=== PATIENT | female | born 1970 | race Caucasian/White ===

== ENCOUNTER → 2017-04-17 | Outpatient (CLI) | payer OTHER ==
--- NOTE | 2017-04-17 18:53 | CT ---
EXAMINATION TYPE: CT chest w con DATE OF EXAM: 04/17/2017 COMPARISON: NONE HISTORY: Lung nodule follow-up. CT DLP: 146.40 mGycm Automated exposure control for dose reduction was used. CONTRAST: CT scan of the chest is performed with IV Contrast, patient injected with 100 mL of Omnipaque 300. FINDINGS: There is a 1 cm nodular density at the right lung apex. There is mild emphysema in the right upper lo be. Heart size is normal. There is no pericardial effusion. There is no pleural effusion. The other l judy byers are clear. There is no mediastinal adenopathy. There are no hilar masses. IMPRESSION: Small noncalcified nodule at the right lung apex. I have no old exam to compare.
== END | disposition home or self-care (01) ==
LOC: RADCTMAIN 17:07
PROVIDERS: ATTEND Family Medicine
DX: R91.1 Solitary pulmonary nodule (principal)
CPT/HCPCS: 71260; Q9967

== ENCOUNTER 2017-05-16 07:34 | Emergency (ER) | payer OTHER ==
[2017-05-16 07:59] VITALS: TEMP 98.8
[2017-05-16] MEDS ORDERED: SODIUM CHLORIDE 0.9% 1,000 ML IV STA (08:21)
--- NOTE | 2017-05-16 08:24 | ED ---
General Adult HPI - General Chief complaint: Fall Stated complaint: Knee Injury Time Seen by Provider: 05/16/17 08:07 Source: patient, RN notes reviewed Mode of arrival: wheelchair Limitations: physical limitation - History of Present Illness Initial comments: 47-year-old female presents to the emergency department with a chief complaint of syncopal episode. Patient states she had 4 syncopal episodes. Patient states these happened last night. Patient states that she ate later than normal. She has had smoked a cigarette she started to get very lightheaded like she has not passed out she remembers hitting her knee and then she passed out. Patient states that she does not remember the rest the states that she passed out about 3 or 4 times last night one time she even. Her parents. They state that she never hit her head. She complains of left elbow and left knee pain. Patient does admit to a history of an DE 8 years ago roughly and states that she is still smoking and she does not take any of her heart medication. Patient states that she was concerned due to her symptoms so she thought that she should be evaluated. Patient states there is no chest pain with this episode however she did feel short of breath. She denies any nausea or vomiting. Patient denies any recent fever, chills, chest pain, back pain, abdominal pain, nausea vomiting, numbness or tingling, dysuria or hematuria, constipation or diarrhea, headaches or visual changes, or any other current symptoms. - Related Data Home Medications Medication Instructions Recorded Confirmed DULoxetine HCL [Cymbalta] 60 mg PO HS 05/16/17 05/16/17 HYDROcodone/APAP 7.5-325MG [[place] 1 tab PO DAILY 05/16/17 05/16/17 7.5-325] Previous Rx's Medication Instructions Recorded Ibuprofen [Motrin] 600 mg PO Q6HR PRN #20 tab 05/16/17 Allergies Allergy/AdvReac Type Severity Reaction Status Date / Time codeine Allergy Unknown Verified 05/16/17 08:08 Penicillins Allergy Rash/Hives Verified 05/16/17 08:08 Review of Systems ROS Statement: Those systems with pertinent positive or pertinent negative responses have been documented in the HPI. ROS Other: All systems not noted in ROS Statement are negative. Past Medical History Past Medical History: Myocardial Infarction (DE) Additional Past Medical History / Comment(s): RIGHT LUNG SPOT History of Any Multi-Drug Resistant Organisms: None Reported Additional Past Surgical History / Comment(s): CERVICAL SURGERY Past Psychological History: No Psychological Hx Reported Smoking Status: Current every day smoker Past Alcohol Use History: Occasional Past Drug Use History: None Reported General Exam - General Exam Comments Initial Comments: General: The patient is awake and alert, in no distress, and does not appear acutely ill. Eye: Pupils are equal, round and reactive to light, extra-ocular movements are intact; there is normal conjunctiva bilaterally. No signs of icterus. Ears, nose, mouth and throat: There are moist mucous membranes and no oral lesions. Neck: The neck is supple, there is no tenderness. Cardiovascular: There is a regular rate and rhythm. No murmur, rub or gallop is appreciated. Respiratory: Lungs are clear to auscultation, respirations are non-labored, breath sounds are equal. No wheezes, stridor, rales, or rhonchi. Gastrointestinal: Soft, non-distended, non-tender abdomen without masses or organomegaly noted. There is no rebound or guarding present. No CVA tenderness. Bowel sounds are unremarkable. Back: There is no tenderness to palpation in the midline. There is no obvious deformity. No rashes noted. Musculoskeletal: Normal ROM, tenderness over the left knee and left elbow to palpation, There is no pedal edema. There is no calf tenderness or swelling. Sensation intact. Pulses equal bilaterally 2+. Neurological: CN II-XII intact, There are no obvious motor or sensory deficits. Coordination appears grossly intact. Speech is normal. Skin: Skin is warm and dry and no rashes or lesions are noted. Psychiatric: Cooperative, appropriate mood & affect, normal judgment. Limitations: physical limitation Course Vital Signs 05/16/17 05/16/17 05/16/17 07:50 09:10 09:54 Temperature 98.8 F Pulse Rate 98 80 Respiratory 18 18 Rate Blood Pressure 129/58 111/55 Blood Pressure 120/67 [Right Arm Sitting] Blood Pressure 141/67 [Right Arm Standing] Blood Pressure 117/64 [Right Arm Supine] O2 Sat by Pulse 100 97 Oximetry EKG Findings - EKG Comments: EKG Findings:: normal sinus rhythm with premature ventricular complexes 86 bpm, normal axis, no atopy, no S-T depressions or elevations, Medical Decision Making - Medical Decision Making 47-year-old female presents for syncopal episode.at this time patient's imaging and lab work is been reviewed. This time we did discuss that due to her history with syncopal episodes he like to admit her for continued syncope workup. At this time the patient refuses to stay. She states that she would like to go home. This and we will respect the patient's wishes. We discussed close follow up with her doctor if she has any dizziness today at all she is to come back immediately. This time she has no dizziness with those are negative. She is continuing complaint of left knee pain x-rays negative. We did place her in a knee immobilizer discussed follow-up with orthopedics. We did discuss return parameters all her questions. She stated she understood and she is. This plan. She will be discharged. - Lab Data Result diagrams: 05/16/17 08:34 05/16/17 08:34 Lab Results 05/16/17 05/16/17 05/16/17 Range/Units 08:34 08:34 08:34 WBC 8.1 (3.8-10.6) k/uL RBC 4.56 (3.80-5.40) m/uL Hgb 14.8 (11.4-16.0) gm/dL Hct 45.6 (34.0-46.0) % MCV 100.1 H (80.0-100.0) fL MCH 32.5 (25.0-35.0) pg MCHC 32.4 (31.0-37.0) g/dL RDW 12.4 (11.5-15.5) % Plt Count 261 (150-450) k/uL Neutrophils % 67 % Lymphocytes % 24 % Monocytes % 6 % Eosinophils % 2 % Basophils % 0 % Neutrophils # 5.4 (1.3-7.7) k/uL Lymphocytes # 1.9 (1.0-4.8) k/uL Monocytes # 0.5 (0-1.0) k/uL Eosinophils # 0.1 (0-0.7) k/uL Basophils # 0.0 (0-0.2) k/uL PT (9.0-12.0) sec INR (<1.2) APTT (22.0-30.0) sec Sodium 141 (137-145) mmol/L Potassium 4.3 (3.5-5.1) mmol/L Chloride 107 (98-107) mmol/L Carbon Dioxide 22 (22-30) mmol/L Anion Gap 12 mmol/L BUN 12 (7-17) mg/dL Creatinine 0.98 (0.52-1.04) mg/dL Est GFR (MDRD) Af Amer >60 (>60 ml/min/1.73 sqM) Est GFR (MDRD) Non-Af >60 (>60 ml/min/1.73 sqM) Glucose 78 (74-99) mg/dL Plasma Lactic Acid Favian (0.7-2.0) mmol/L Calcium 9.0 (8.4-10.2) mg/dL Magnesium 1.9 (1.6-2.3) mg/dL Total Bilirubin 0.4 (0.2-1.3) mg/dL AST 16 (14-36) U/L ALT 25 (9-52) U/L Alkaline Phosphatase 53 (38-126) U/L Total Creatine Kinase 30 (30-135) U/L CK-MB (CK-2) 0.9 (0.0-2.4) ng/mL CK-MB (CK-2) Rel Index 3.0 Troponin I <0.012 (0.000-0.034) ng/mL Total Protein 7.2 (6.3-8.2) g/dL Albumin 4.3 (3.5-5.0) g/dL Amylase 66 (30-110) U/L Lipase 113 (23-300) U/L Urine Color Urine Appearance (Clear) Urine pH (5.0-8.0) Ur Specific [place] (1.001-1.035) Urine Protein (Negative) Urine Glucose (UA) (Negative) Urine Ketones (Negative) Urine Blood (Negative) Urine Nitrite (Negative) Urine Bilirubin (Negative) Urine Urobilinogen (<2.0) mg/dL Ur Leukocyte Esterase (Negative) Urine HCG, Qual (Not Detectd) 05/16/17 05/16/17 05/16/17 Range/Units 08:34 08:34 08:34 WBC (3.8-10.6) k/uL RBC (3.80-5.40) m/uL Hgb (11.4-16.0) gm/dL Hct (34.0-46.0) % MCV (80.0-100.0) fL MCH (25.0-35.0) pg MCHC (31.0-37.0) g/dL RDW (11.5-15.5) % Plt Count (150-450) k/uL Neutrophils % % Lymphocytes % % Monocytes % % Eosinophils % % Basophils % % Neutrophils # (1.3-7.7) k/uL Lymphocytes # (1.0-4.8) k/uL Monocytes # (0-1.0) k/uL Eosinophils # (0-0.7) k/uL Basophils # (0-0.2) k/uL PT 11.4 (9.0-12.0) sec INR 1.1 (<1.2) APTT 25.0 (22.0-30.0) sec Sodium (137-145) mmol/L Potassium (3.5-5.1) mmol/L Chloride (98-107) mmol/L Carbon Dioxide (22-30) mmol/L Anion Gap mmol/L BUN (7-17) mg/dL Creatinine (0.52-1.04) mg/dL Est GFR (MDRD) Af Amer (>60 ml/min/1.73 sqM) Est GFR (MDRD) Non-Af (>60 ml/min/1.73 sqM) Glucose (74-99) mg/dL Plasma Lactic Acid Favian 1.0 (0.7-2.0) mmol/L Calcium (8.4-10.2) mg/dL Magnesium (1.6-2.3) mg/dL Total Bilirubin (0.2-1.3) mg/dL AST (14-36) U/L ALT (9-52) U/L Alkaline Phosphatase (38-126) U/L Total Creatine Kinase (30-135) U/L CK-MB (CK-2) (0.0-2.4) ng/mL CK-MB (CK-2) Rel Index Troponin I (0.000-0.034) ng/mL Total Protein (6.3-8.2) g/dL Albumin (3.5-5.0) g/dL Amylase (30-110) U/L Lipase (23-300) U/L Urine Color Yellow Urine Appearance Clear (Clear) Urine pH 5.5 (5.0-8.0) Ur Specific [place] 1.016 (1.001-1.035) Urine Protein Negative (Negative) Urine Glucose (UA) Negative (Negative) Urine Ketones Trace H (Negative) Urine Blood Negative (Negative) Urine Nitrite Negative (Negative) Urine Bilirubin Negative (Negative) Urine Urobilinogen <2.0 (<2.0) mg/dL Ur Leukocyte Esterase Negative (Negative) Urine HCG, Qual (Not Detectd) 05/16/17 Range/Units 08:34 WBC (3.8-10.6) k/uL RBC (3.80-5.40) m/uL Hgb (11.4-16.0) gm/dL Hct (34.0-46.0) % MCV (80.0-100.0) fL MCH (25.0-35.0) pg MCHC (31.0-37.0) g/dL RDW (11.5-15.5) % Plt Count (150-450) k/uL Neutrophils % % Lymphocytes % % Monocytes % % Eosinophils % % Basophils % % Neutrophils # (1.3-7.7) k/uL Lymphocytes # (1.0-4.8) k/uL Monocytes # (0-1.0) k/uL Eosinophils # (0-0.7) k/uL Basophils # (0-0.2) k/uL PT (9.0-12.0) sec INR (<1.2) APTT (22.0-30.0) sec Sodium (137-145) mmol/L Potassium (3.5-5.1) mmol/L Chloride (98-107) mmol/L Carbon Dioxide (22-30) mmol/L Anion Gap mmol/L BUN (7-17) mg/dL Creatinine (0.52-1.04) mg/dL Est GFR (MDRD) Af Amer (>60 ml/min/1.73 sqM) Est GFR (MDRD) Non-Af (>60 ml/min/1.73 sqM) Glucose (74-99) mg/dL Plasma Lactic Acid Favian (0.7-2.0) mmol/L Calcium (8.4-10.2) mg/dL Magnesium (1.6-2.3) mg/dL Total Bilirubin (0.2-1.3) mg/dL AST (14-36) U/L ALT (9-52) U/L Alkaline Phosphatase (38-126) U/L Total Creatine Kinase (30-135) U/L CK-MB (CK-2) (0.0-2.4) ng/mL CK-MB (CK-2) Rel Index Troponin I (0.000-0.034) ng/mL Total Protein (6.3-8.2) g/dL Albumin (3.5-5.0) g/dL Amylase (30-110) U/L Lipase (23-300) U/L Urine Color Urine Appearance (Clear) Urine pH (5.0-8.0) Ur Specific [place] (1.001-1.035) Urine Protein (Negative) Urine Glucose (UA) (Negative) Urine Ketones (Negative) Urine Blood (Negative) Urine Nitrite (Negative) Urine Bilirubin (Negative) Urine Urobilinogen (<2.0) mg/dL Ur Leukocyte Esterase (Negative) Urine HCG, Qual Not Detected (Not Detectd) - Radiology Data Radiology results: report reviewed, image reviewed Disposition Clinical Impression: Syncope, Syncope, Left elbow contusion, Contusion of left knee Disposition: HOME SELF-CARE Condition: Stable Instructions: Syncope (ED) Additional Instructions: Please use medication as discussed. Please follow up with family doctor if symptoms have not improved over the next two days. Please return to the emergency room if your symptoms increase or worsen or for any other concerns. Prescriptions: Ibuprofen [Motrin] 600 mg PO Q6HR PRN #20 tab PRN Reason: Pain Referrals: Chioma Menon MD [Primary Care Provider] - 1-2 days William Valdez DO [Doctor of Osteopathic Medicine] - 1-2 days Time of Disposition: 10:54
[2017-05-16 08:57] LABS: ALT 25 U/L (9-52); AST 16 U/L (14-36); Alkaline Phosphatase 53 U/L (38-126); Amylase 66 U/L (30-110); Anion Gap 12 mmol/L; Appearance,Urine Clear (Clear); Basophils % (A) 0 %; Bilirubin,Urine Negative (Negative); Blood Urea Nitrogen 12 mg/dL (7-17); CH 32.7; CHCM 32.8; Carbon Dioxide 22 mmol/L (22-30); Chloride 107 mmol/L (98-107); Eosinophils # (A) 0.1 k/uL (0-0.7); Eosinophils % (A) 2 %; Glucose 78 mg/dL (74-99); Glucose,Urine (UA) Negative (Negative); HCT 45.6 % (34.0-46.0); HDW 2.07; HGB 14.8 gm/dL (11.4-16.0); Ketones,Urine Trace (Negative); Leukocyte Esterase,Urine Negative (Negative); Luc # (Auto) 0.14; Luc % (Auto) 2; Lymphocytes # (A) 1.9 k/uL (1.0-4.8); Lymphocytes % (A) 24 %; MCH 32.5 pg (25.0-35.0); MCHC 32.4 g/dL (31.0-37.0); MCV 100.1 fL (80.0-100.0); Magnesium 1.9 mg/dL (1.6-2.3); Mean Platelet Volume 6.8; Monocytes # (A) 0.5 k/uL (0-1.0); Monocytes % (A) 6 %; Neutrophils # (A) 5.4 k/uL (1.3-7.7); Neutrophils % (A) 67 %; Nitrite,Urine Negative (Negative); Non-African American GFR(MDRD) >60 (>60 ml/min/1.73 sqM); PH, Urine 5.5 (5.0-8.0); Potassium 4.3 mmol/L (3.5-5.1); Protein,Urine Negative (Negative); RBC 4.56 m/uL (3.80-5.40); RDW 12.4 % (11.5-15.5); Sodium 141 mmol/L (137-145); Specific Gravity,Urine 1.016 (1.001-1.035); Total Bilirubin 0.4 mg/dL (0.2-1.3); Total Protein 7.2 g/dL (6.3-8.2); UA Billing (MACRO vs. MICRO) CHEM; Urobilinogen,Urine <2.0 mg/dL (<2.0); WBC 8.1 k/uL (3.8-10.6)
[2017-05-16 08:58] LABS: INR 1.1 (<1.2); Prothrombin Time 11.4 sec (9.0-12.0)
[2017-05-16 09:09] LABS: Creatine Kinase 30 U/L (30-135)
[2017-05-16 09:21] LABS: Creatine Kinase MB 0.9 ng/mL (0.0-2.4); Troponin I <0.012 ng/mL (0.000-0.034)
--- NOTE | 2017-05-16 09:52 | XR ---
EXAMINATION TYPE: XR elbow complete LT DATE OF EXAM: 05/16/2017 CLINICAL HISTORY: Left elbow pain after fall injury last night TECHNIQUE: Frontal, lateral and oblique images of the left elbow are obtained. COMPARISON: None FINDINGS: There is no acute fracture/dislocation evident in the left elbow. No abnormal fat pad sig ns are seen. The overlying soft tissue appears unremarkable. IMPRESSION: There is no acute fracture or dislocation in the left elbow.
--- NOTE | 2017-05-16 09:58 | XR ---
EXAMINATION TYPE: XR knee complete LT DATE OF EXAM: 05/16/2017 CLINICAL HISTORY: pain TECHNIQUE: Three views of the left knee are obtained. COMPARISON: None. FINDINGS: There is no acute fracture/dislocation. The tri-compartment joint spaces appear within no rmal limits. The overlying soft tissue appears unremarkable. IMPRESSION: There is no acute fracture or dislocation ICD 10 NO FRACTURE, INITIAL EVALUATION
--- NOTE | 2017-05-16 09:59 | XR ---
EXAMINATION TYPE: XR chest 2V DATE OF EXAM: 05/16/2017 CLINICAL HISTORY: Chest pain TECHNIQUE: Frontal and lateral views of the chest are obtained. COMPARISON: None FINDINGS: There is no focal air space opacity, pleural effusion, or pneumothorax seen. The cardiac silhouette size is within normal limits. The osseous structures are intact. IMPRESSION: No acute cardiopulmonary process.
--- NOTE | 2017-05-16 10:17 | CT ---
EXAMINATION TYPE: CT brain wo con DATE OF EXAM: 05/16/2017 COMPARISON: NONE HISTORY: syncope CT DLP: 1054.[address] of the brain was performed. The ventricles, basal cisterns and sulci overlying the cerebral convexities demonstrate a normal appe arance. There is no evidence for intracranial hemorrhage or sulcal effacement. No mass effects are seen. Osseous calvarium is intact. Moderate chronic pansinusitis. If symptoms persist consider MRI as clinically warranted. IMPRESSION: 1. No acute intracranial process is seen at this time. 2. Moderate chronic pansinusitis.
[2017-05-16 11:21] VITALS: BP 121/68; PULSE 72; RESP 20
== END 2017-05-16 11:25 | disposition home or self-care (01) ==
LOC: EC 07:34
DX: S50.02XA Contusion of left elbow, initial encounter (principal); S80.02XA Contusion of left knee, initial encounter; R55 Syncope and collapse; R42 Dizziness and giddiness; I25.2 Old myocardial infarction; F17.210 Nicotine dependence, cigarettes, uncomplicated; Z79.891 Long term (current) use of opiate analgesic; Z79.899 Other long term (current) drug therapy; Z88.0 Allergy status to penicillin; Z88.5 Allergy status to narcotic agent; W18.00XA Striking against unspecified object with subsequent fall, initial encounter; Y92.000 Kitchen of unspecified non-institutional (private) residence as the place of occurrence of the external cause
CPT/HCPCS: 99284 ×2; 96360 ×2; 36415; 93005; 80053; 82150; 82550; 82553; 83605; 83690; 83735; 84484; 85025; 85610; 85730; 81003; 81025; 71020; 73080; 73562; 70450; L1830